=== PATIENT | female | born 1970 | race Caucasian/White ===

== ENCOUNTER 2019-08-04 14:01 | Emergency (ER) | payer MEDICARE, MEDICAID ==
[2019-08-04 14:07] VITALS: Wt 81.8 kg
[2019-08-04 16:59] VITALS: BP 123/79
== END 2019-08-04 16:59 | disposition home or self-care (01) ==
LOC: D.ER 14:01
DX: M54.31 Sciatica, right side (principal); M54.5 Low back pain